=== PATIENT | female | born 1975 | race Caucasian/White ===

== ENCOUNTER → 2016-12-11 | Outpatient (CLI) | payer OTHER ==
--- NOTE | 2016-12-11 18:54 | Diagnostic Imaging Report ---
Bilateral diagnostic mammogram. The current study was also evaluated with a Computer Aided Detection (CAD) system. INDICATION: Palpable lump in the medial aspect of the right breast. COMPARISON: Comparison exams include 08/29/2015 and other studies. FINDINGS: The breasts are composed of heterogeneously dense parenchyma which may decrease mammographic sensitivity. Bilateral benign-appearing calcifications are seen. The area of palpable lump is marked in the right breast medial aspect with no underlying abnormality seen. IMPRESSION: Stable dense breast parenchyma is seen with no focal lesion identified. Ultrasound evaluation pending. ACR BI-RADS Category 0: Incomplete. (Needs additional imaging evaluation). Result letter will be mailed to the patient. Note: At least 10% of breast cancer is not imaged by mammography. Dictated by: Dictated on workstation # [id number]
--- NOTE | 2016-12-11 18:58 | Diagnostic Imaging Report ---
Right breast ultrasound. INDICATION: Palpable lump in the medial aspect of the right breast. FINDINGS: The area of palpable lump is scanned with no underlying abnormality seen. IMPRESSION: Negative study. Clinical follow-up of the palpable area recommended. ACR BI-RADS Category 1: Negative. Dictated by: Dictated on workstation # [id number]
== END ==
LOC: RAD 09:20
PROVIDERS: ATTEND Family Medicine
DX: Z12.31 Encounter for screening mammogram for malignant neoplasm of breast (principal); N63 Unspecified lump in breast
CPT/HCPCS: 77066

== ENCOUNTER → 2017-12-24 | Outpatient (CLI) | payer BC, OTHER ==
--- NOTE | 2017-12-24 17:53 | Diagnostic Imaging Report ---
INDICATION: Routine screening. Comparison is made with prior exams from 12/11/2016 and 08/29/2015. 2-D and 3-D bilateral screening mammography was performed. The current study was also evaluated with a Computer Aided Detection (CAD) system. FINDINGS: Scattered fibronodular densities are identified bilaterally. The parenchymal pattern is stable. There are benign nodular densities in both breasts which appear stable and most consistent with intraparenchymal lymph nodes. No new mass or malignant-appearing microcalcifications are seen. The axillae are unremarkable. IMPRESSION: No mammographic features suspicious for malignancy are identified. ACR BI-RADS Category 2: Benign findings. Result letter will be mailed to the patient. Note: At least 10% of breast cancer is not imaged by mammography. Dictated by: Dictated on workstation # [id number]
== END ==
LOC: RAD 09:21
PROVIDERS: ATTEND Family Medicine
DX: Z12.31 Encounter for screening mammogram for malignant neoplasm of breast (principal)
CPT/HCPCS: 77067

== ENCOUNTER → 2018-12-29 | Outpatient (CLI) | payer BC ==
--- NOTE | 2018-12-29 12:25 | Diagnostic Imaging Report ---
Indication: Routine screening. Comparison is made with prior mammogram from 12/24/2017 and 12/11/2016. 2-D and 3-D bilateral screening mammography was performed with CAD. Scattered fibroglandular densities are identified bilaterally. A benign nodular densities in both breasts appear stable and most consistent with intramammary lymph nodes. No spiculated mass or malignant appearing microcalcifications are seen. Axillae are unremarkable. Impression: BI-RADS category 2 No mammographic features suspicious for malignancy are identified. ACR BI-RADS Category 2: Benign findings. Result letter will be mailed to the patient. Note: At least 10% of breast cancer is not imaged by mammography. Dictated by: Dictated on workstation # [id number]
== END ==
LOC: RAD 09:28
PROVIDERS: ATTEND Family Medicine
DX: Z12.31 Encounter for screening mammogram for malignant neoplasm of breast (principal)
CPT/HCPCS: 77067

== ENCOUNTER → 2020-01-02 | Outpatient (CLI) | payer BC ==
--- NOTE | 2020-01-02 11:52 | Diagnostic Imaging Report ---
INDICATION: Routine screening. COMPARISON: 12/29/2018 and 12/24/2017. TECHNIQUE: 2D and 3D bilateral screening mammography was performed with CAD. FINDINGS: Both breasts remain heterogeneously dense, limiting the sensitivity of mammography. The intraparenchymal lymph nodes in the outer right breast appear stable. The circumscribed nodules in the lower outer left breast are also stable. No new mass or malignant appearing microcalcifications are seen. The axillae are unremarkable. IMPRESSION: No mammographic features suspicious for malignancy are identified. ACR BI-RADS Category 2: Benign findings. Result letter will be mailed to the patient. Note: At least 10% of breast cancer is not imaged by mammography. Dictated by: Dictated on workstation # [id number]
== END ==
LOC: RAD 10:57
PROVIDERS: ATTEND Family Medicine
DX: Z12.31 Encounter for screening mammogram for malignant neoplasm of breast (principal)
CPT/HCPCS: 77063; 77067

== ENCOUNTER → 2020-04-05 | Outpatient (CLI) | payer BC ==
--- NOTE | 2020-04-05 17:15 | Diagnostic Imaging Report ---
INDICATION: Left breast lump. Sonographic interrogation of the area of lump at the 7 to 8:00 location was performed. No sonographic abnormality is detected. No solid or cystic mass is detected. IMPRESSION: BI-RADS Category 1. No sonographic abnormality is identified. Close clinical and self breast exams are recommended to confirm stability of the palpable abnormality. If this persists, diagnostic mammography could be performed. ACR BI-RADS Category 1: Negative. Result letter will be mailed to the patient. Note: At least 10% of breast cancer is not imaged by mammography. Dictated by: Dictated on workstation # [id number]
== END ==
LOC: RAD 13:29
PROVIDERS: ATTEND Family Medicine
DX: N63.24 Unspecified lump in the left breast, lower inner quadrant (principal)
CPT/HCPCS: 76642

== ENCOUNTER → 2021-01-21 | Outpatient (CLI) | payer BC ==
--- NOTE | 2021-01-21 15:00 | Diagnostic Imaging Report ---
INDICATION: Routine screening. COMPARISON: 01/02/2020 and 12/29/2018. TECHNIQUE: 2D and 3D bilateral screening mammography was performed with CAD. FINDINGS: Both breasts are heterogeneously dense, limiting the sensitivity of mammography. Benign nodules in the outer right breast are stable. Benign-appearing nodules in the slightly outer left breast are also stable. No new mass or malignant-appearing microcalcifications are seen. The axillae are unremarkable. IMPRESSION: No mammographic features suspicious for malignancy are identified. ACR BI-RADS Category 2: Benign findings. Result letter will be mailed to the patient. Note: At least 10% of breast cancer is not imaged by mammography. Dictated by: Dictated on workstation # [id number]
== END ==
LOC: RAD 10:12
PROVIDERS: ATTEND Family Medicine
DX: Z12.31 Encounter for screening mammogram for malignant neoplasm of breast (principal)
CPT/HCPCS: 77063; 77067

== ENCOUNTER → 2022-01-22 | Outpatient (CLI) | payer BC ==
--- NOTE | 2022-01-22 18:12 | Diagnostic Imaging Report ---
EXAMINATION: 3D bilateral screening mammogram with CAD. COMPARISON: 01/21/2021, 01/02/2020 and 12/29/2018. The current study was also evaluated with a Computed Aided Detection (CAD) system. FINDINGS: At this time there are no current complaints. The fibroglandular tissue in both breasts is heterogeneously dense. This does limit the sensitivity of this exam. When compared to the previous study there does not appear to have been any significant change. There is no primary or secondary sign of malignancy noted. IMPRESSION: There is no evidence for malignancy. ACR BI-RADS Category 1: Negative. Result letter will be mailed to the patient. Note: At least 10% of breast cancer is not imaged by mammography. Dictated by: Dictated on workstation # [id number]
== END ==
LOC: RAD 09:45
PROVIDERS: ATTEND Family Medicine
DX: Z12.31 Encounter for screening mammogram for malignant neoplasm of breast (principal)
CPT/HCPCS: 77063; 77067

== ENCOUNTER → 2023-01-29 | Outpatient (CLI) | payer BC ==
--- NOTE | 2023-01-29 13:18 | Diagnostic Imaging Report ---
INDICATION: Routine screening. Comparison is made with prior mammogram from 01/22/2022 and 01/21/2021. 2-D and 3-D bilateral screening mammography was performed with CAD. Scattered fibroglandular densities are identified bilaterally. Benign-appearing nodules in the upper and outer aspect of the right breast appear stable. Left breast is stable. No spiculated mass or malignant appearing microcalcifications are seen. Axillae are unremarkable. IMPRESSION: No mammographic features suspicious for malignancy are identified. ACR BI-RADS Category 2: Benign findings. Result letter will be mailed to the patient. Note: At least 10% of breast cancer is not imaged by mammography. BI-RADS Category 2 Dictated by: Dictated on workstation # [id number]
== END ==
LOC: RAD 10:13
PROVIDERS: ATTEND Nurse Practitioner Family
DX: Z12.31 Encounter for screening mammogram for malignant neoplasm of breast (principal)
CPT/HCPCS: 77063; 77067

== ENCOUNTER → 2023-03-04 | Outpatient (CLI) | payer BC ==
[~2023-03-04] MED LIST: CATHETER FLUSH 10 ML SYR IVP PRN
--- NOTE | 2023-03-04 09:57 | Diagnostic Imaging Report ---
EXAM: RIGHT UPPER QUADRANT ULTRASOUND DATE: March 04, 2023. COMPARISON: None. INDICATION: 47-year-old female, right upper quadrant abdominal pain. PROCEDURE: Two-dimensional grayscale and color doppler ultrasound examination of the right upper quadrant is performed. FINDINGS: Liver: The liver is of normal size and echotexture without solid or cystic masses. The main portal vein is patent with normal directional flow and velocity. Bile ducts and gallbladder: There is no pericholecystic fluid, gallbladder wall thickening or gallstones. The gallbladder wall measures 0.2 cm. There is no intrahepatic or extrahepatic biliary ductal dilation. The common bile duct measures 0.4 cm. Right kidney: Unremarkable right kidney. No hydronephrosis. The right kidney measures 11.2 cm x 4.0 cm x 5.0 cm. Pancreas: Normal visualized pancreas. IMPRESSION: 1. Unremarkable right upper quadrant abdominal ultrasound. Dictated by: Dictated on workstation # [id number]
--- NOTE | 2023-03-04 13:00 | Diagnostic Imaging Report ---
INDICATION: Right upper quadrant pain COMPARISON: None available TECHNIQUE: Anterior scintigraphic imaging of the abdomen was performed after the intravenous administration of 4.84 mCi Tc-99m Choletec. FINDINGS: The upper abdomen was imaged for 45 minutes with the gamma camera. There is prompt homogeneous uptake of radiopharmaceutical by the liver. There is activity in the common duct and gallbladder by 20 minutes. Small bowel activity is seen by 25 minutes. After 45 minutes, the patient received 8 oz of ensure by mouth. After 40 minutes, the gallbladder ejection fraction was calculated to be 35% which is low normal. IMPRESSION: 1. Patent common and cystic bile ducts. 2. No gallbladder dysfunction. Dictated by: Dictated on workstation # [id number]
== END ==
LOC: CARD 08:06
PROVIDERS: ATTEND Surgery
DX: R10.11 Right upper quadrant pain (principal)
CPT/HCPCS: 76705; 78227

== ENCOUNTER 2023-04-22 09:35 | Outpatient (CLI) | payer BC ==
[~2023-04-22] VITALS: Ht 162.6 cm; Wt 63.2 kg
[2023-04-22] MEDS ORDERED: NFNEB10T PO (10:48)
[2023-04-22] MEDS ORDERED: FISH1CAP15 PO (10:48)
[2023-04-22] MEDS ORDERED: CALC600T91 PO (10:48)
[2023-04-22] MEDS ORDERED: NF-CRES10T PO (10:48)
[2023-04-22] MEDS ORDERED: LISD40CA3 PO (10:48)
[2023-04-22] MEDS ORDERED: VITA-259 PO (10:48)
[2023-04-22] MEDS ORDERED: LORA10TA76 PO (10:48)
[2023-04-22] MEDS ORDERED: LISI10TA25 PO (10:48)
[2023-04-22] MEDS ORDERED: CALC-250 PO (10:48)
[2023-04-22] MEDS ORDERED: OMEP20CA18 PO (10:48)
[2023-04-23] MEDS ORDERED: HYDR-3817 PO (09:27)
== END 2023-04-22 11:08 | disposition home or self-care (01) ==
LOC: PREOP 09:35
PROVIDERS: ATTEND Surgery
DX: Z01.818 Encounter for other preprocedural examination (principal)

== ENCOUNTER 2023-04-23 08:48 | Day surgery (SDC) | payer BC ==
[2023-04-23] VITALS (11 sets, daily range): BP systolic 86–129; BP diastolic 45–93
[~2023-04-23 08:48] MED LIST changes: +CALC-250 PO; +CALC600T91 PO; -CATHETER FLUSH 10 ML SYR IVP PRN; +FISH1CAP15 PO; +LISD40CA3 PO; +LISI10TA25 PO; +LORA10TA76 PO; +NF-CRES10T PO; +NFNEB10T PO; +OMEP20CA18 PO; +VITA-259 PO
--- NOTE | 2023-04-23 09:23 | Progress Note-Pre Operative ---
Pre-Operative Progress Note Date H&P Reviewed: Apr 23, 2023 Time H&P Reviewed: 09:20 History & Physical: H&P Reviewed, Patient Examed, No changes noted Pre-Operative Diagnosis: Screening colonoscopy, biliary dyskinesia, left eye lesion, right neck cyst MELISA JOLLEY APRN Apr 23, 2023 09:23
[2023-04-23] MEDS ORDERED: LIDOCAINE 2% w/EPI 1:100,000 20 ML VIAL ONE (09:27)
[2023-04-23] MEDS ORDERED: HYDR-3817 PO (09:27)
--- NOTE | 2023-04-23 09:28 | Discharge Inst-Surgical ---
D/C Lap Instructions-KIDO Reconcile Patient Problems Problems Reviewed?: Yes New, Converted, or Re-Newed RX: RX on Chart Follow Up Appt in 2 weeks Activity as tolerated No driving for 24 hours No driving while on pain medications Incentive Spirometry use every 2 hours while awake Regular Diet Symptoms to Report: Fever over 101 degree F, Nausea/Vomiting Infection Signs and Symptoms to report: Increased redness, Foul odor of wound, Increased drainage Bathing instructions: May shower Operative Area Clean/Dry; Keep incision clean/dry If any problems/questions: Contact your physician or go to Emergency Room MELISA JOLLEY APRN Apr 23, 2023 09:28
[2023-04-23] MEDS ORDERED: ONDANSETRON INJECTION 4 MG/2 ML (SDV) IVP PRN ×2 (09:30→11:45)
[2023-04-23] MEDS ORDERED: HYDROcodone/ACETAMINOPHEN 5 MG/325 MG TABLET PO ONE (09:30)
[2023-04-23] MEDS ORDERED: morphine INJ 10 MG/ML 1ML (SYR OR VIAL) IVP PRN (09:30)
[2023-04-23] MEDS ORDERED: ACETAMINOPHEN 325 MG TABLET PO PRN (09:30)
[2023-04-23] MEDS ORDERED: MIDAZOLAM INJ 2 MG/2 ML VIAL ONE (09:37)
[2023-04-23] MEDS ORDERED: fentaNYL INJECTION 100 MCG/2 ML VIAL ONE (09:37)
[2023-04-23] MEDS ORDERED: ceFAZolin INJECTION 1,000 MG in NS (IVPB) 50 ML 50 ML IV ONE (09:45)
[2023-04-23] MEDS: LACTATED RINGERS 1,000 ML 1,000 ML IV PRN ×2 (09:49→10:30)
[2023-04-23] MEDS ORDERED: LIDOCAINE 2% w/EPI 1:100,000 20 ML VIAL INJ ONE (10:24)
[2023-04-23] MEDS ORDERED: SEVOFLURANE (ULTANE) 15 ML INHAL SOLN ONE (11:09)
[2023-04-23] MEDS ORDERED: GLYCOPYRROLATE INJ 0.2 MG/ML 2 ML VIAL ONE (11:10)
[2023-04-23] MEDS ORDERED: LIDOCAINE PF 2% 5 ML VIAL ONE (11:10)
[2023-04-23] MEDS ORDERED: ROCURONIUM 50 MG/5 ML VIAL IV ONE (11:10)
[2023-04-23] MEDS ORDERED: ONDANSETRON INJECTION 4 MG/2 ML (SDV) ONE (11:10)
[2023-04-23] MEDS ORDERED: proPOfol INJECTION 200 MG/20 ML VIAL IV ONE (11:10)
[2023-04-23] MEDS ORDERED: dexAMETHasone INJ 10 MG/ML 1 ML VIAL ONE (11:10)
[2023-04-23] MEDS ORDERED: NEOSTIGMINE 1 MG/1ML 10 ML VIAL ONE (11:10)
--- NOTE | 2023-04-23 11:16 | Progress Note-Post Operative ---
Post-Operative Progess Note Surgeon (s)/Unix Systems Administrator (s) Surgeon Dr. Fady Hernandez M.D. Unix Systems Administrator: Campbell Jolley APRN Pre-Operative Diagnosis Screening colonoscopy, biliary dyskinesia, left eye lesion, right neck cyst Post-Operative Diagnosis Biliary dyskinesia, mild external and internal hemorrhoids, left eye medial canthus lesion (5 mm), right base of neck lesion (5 mm) Procedure & Operative Findings Date of Procedure 04/23/23 Procedure Performed/Findings Laparoscopic cholecystectomy, excision of left eye medial canthus and right base of neck lesion, colonoscopy Anesthesia Type GET Estimated Blood Loss Estimated blood loss (mL): Minimal Specimens/Packing Specimens Removed 1) Gallbladder 2) Left eye medial canthus 3) Right base of the neck lesion CAPMBELL JOLLEY PCI SECURITY CONSULTANT Apr 23, 2023 11:16
[2023-04-23] MEDS ORDERED: KETOROLAC INJ 30 MG/ML VIAL ONE (11:25)
--- NOTE | 2023-04-23 11:32 | Anesthesia-General Post-Op ---
General Patient Condition Mental Status/LOC: Same as Preop Cardiovascular: Satisfactory Nausea/Vomiting: Absent Respiratory: Satisfactory Pain: Controlled Complications: Absent Post Op Complications Complications None Follow Up Care/Instructions Patient Instructions None needed. Anesthesia/Patient Condition Patient Condition Patient is doing well, no complaints, stable vital signs, no apparent adverse anesthesia problems. No complications reported per nursing. ALEAH BAILEY CRNA Apr 23, 2023 11:32
[2023-04-23] MEDS ORDERED: KETOROLAC INJ 30 MG/ML VIAL IVP ONE (11:45)
[2023-04-23] MEDS ORDERED: morphine INJ 10 MG/ML 1ML (SYR OR VIAL) IVP ONE (11:45)
[2023-04-23] MEDS ORDERED: HYDROcodone/ACETAMINOPHEN 5 MG/325 MG TABLET ONE (13:01)
--- NOTE | 2023-04-23 19:54 | OPERATIVE REPORT ---
DATE OF SERVICE: 04/23/2023 ATTENDING PRIMARY CARE PHYSICIAN: Miya Mcmanus DO PREOPERATIVE DIAGNOSES: Symptomatic biliary dyskinesia, screening colonoscopy, symptomatic lesion along the left eye medial canthus, and the base of the right side of the neck. POSTOPERATIVE DIAGNOSES: Symptomatic biliary dyskinesia, screening colonoscopy, symptomatic lesion along the left eye medial canthus, and the base of the right side of the neck with mild stage II external and internal hemorrhoids. PROCEDURE: Laparoscopic cholecystectomy, colonoscopy, excision of left eye medial canthus skin lesion, 5 mm in size, and excision of skin lesion of the base of the right neck, 5 mm in size. SURGEON: Vida Hernandez M.D. WHARF TALLY CLERK: Campbell Taylor APRN ANESTHESIA: General endotracheal. ESTIMATED BLOOD LOSS: Minimal. FINDINGS: Symptomatic biliary dyskinesia, screening colonoscopy, symptomatic lesion along the left eye medial canthus, and the base of the right side of the neck with mild stage II external and internal hemorrhoids. DISPOSITION: The patient tolerated the procedure well. INDICATIONS: The patient is a 47-year-old female with approximately 5-month history of upper abdominal discomfort and encompassing right upper abdominal quadrant crampy pain, abdominal bloating, as well as nausea, usually after eating meals. She states that this was initially mild, however, has become more frequent and worsened in severity over time. She underwent an ultrasound, which did not show any gallstones, however, a HIDA scan was performed, which showed a low ejection fraction consistent with a symptomatic biliary dyskinesia. She also is in need of a screening colonoscopy. She has not had a colonoscopy up to this point in her life. She does not report any major issues with diarrhea, nor constipation as well as no red blood per rectum, nor any dark tarry stools. She also does not report any family history of colon cancer. She also has two symptomatic lesions, one along the medial canthus of the left eye and at the base of the right neck. Both lesions are small and raised and approximately 5 mm in size. DESCRIPTION OF PROCEDURE: The patient was brought to the operating room, laid supine on the table. After adequate IV pain and sedative medications and general endotracheal intubation, the abdomen was prepped and draped in standard surgical fashion. Lidocaine 2% with epinephrine was then used to anesthetize the overlying skin in the left upper abdominal quadrant and a transverse skin incision made using a #15 blade. An 0 silk suture was applied to the medial aspect of the incision for retraction and a Veress needle inserted with low opening pressure of 0 mmHg. The abdomen was then insufflated to 15 mmHg pressure. The Veress needle removed and a 5-mm trocar placed followed by a 5-mm 45-degree angle laparoscope. A four-quadrant abdominal exploration was performed. There was a distended gallbladder as well as adhesions of the gallbladder to the caudate lobe of the liver. Under direct visualization, we then proceeded to place a supraumbilical 10-mm port after the skin and peritoneal lining were anesthetized using 2% lidocaine with epinephrine and a transverse skin incision made using a #15 blade. In a similar manner, a right upper abdominal quadrant 5-mm port was placed. The patient was then placed in the reverse Trendelenburg position as well as plane right side up, left side down. The fundus of the gallbladder was then retracted anteriorly and superiorly. The hepatoduodenal ligament was then dissected using blunt dissection as well as electrocautery on the hook instrument as well as a [place] dissector. The adhesions to the caudate lobe of the liver were then taken down using electrocautery on the hook instrument with visualization of good hemostasis. The entire critical view of safety was identified including the cystic duct and artery as the only 2 structures going into the gallbladder as well as the cystic plate behind the proximal gallbladder. A timeout was then taken and the cystic duct and artery were then clipped proximally and distally and cut with EndoShears. The gallbladder was then dissected off of the liver bed using cautery on hook instrument with visualization of good hemostasis as well as no leaking ducts of Luschka. The gallbladder was removed through the 10-mm port site using an EndoCatch bag. The fascia and peritoneum to the 10-mm port were then closed under direct visualization using a Jean[place] device and 0 Vicryl suture. The abdomen was desufflated and the remaining ports were removed and all skin incisions were closed using 4-0 Monocryl running subcuticular sutures. We then proceeded with excision of the left eye medial canthus skin lesion. This lesion was anesthetized using 2% lidocaine with epinephrine. The lesion was then excised using a #15 blade, the size of the lesion was approximately 5 mm. Good hemostasis was achieved with direct pressure and the skin edges were approximated using 5-0 Prolene interrupted suture. In a similar manner, the lesion of the base of the right neck was anesthetized and excised using a #15 blade. The skin edges were then reapproximated using 5-0 Prolene interrupted suture. The patient was then placed in frogleg position and a digital rectal examination was performed which revealed mild chronic stage II external and internal hemorrhoids, not actively edematous nor inflamed and no bleeding. Normal sphincter tone was felt and there were no palpable masses. The endoscope was then intubated into the anus, rectum gently insufflated. The endoscope was then advanced through the valves of [place] of the rectum with no polyps or any neoplasms identified. We then proceeded through the sigmoid colon where a solitary small diverticula identified. We then proceeded through the remainder of the descending, transverse and ascending colon to the cecum, which were normal. There were no polyps or any neoplasms identified. The endoscope was then slowly withdrawn while taking a second look and suctioning of residual air with no additional findings. The patient tolerated the procedure well. We will have him start IV and oral pain medication as well as a clear liquid diet. When she is tolerating clears with good pain control with oral pain medication, and is ambulating well, we will discharge her home. We will also recommend eventual high-fiber diet with a fiber supplement, which are equal or exceed 25 grams daily as well as significant amounts of water to promote soft stools on a daily basis. She does not need another colonoscopy for another 10 years, if she is asymptomatic. We will also have her follow up in the office to discuss the pathology results of the skin lesions as well as to remove the sutures. Job ID: [id number] DocumentID: [id number] Dictated Date: 04/23/2023 12:47:18 Shredder Operator Date: 04/23/2023 19:52:00 Dictated By: VIDA HERNANDEZ MD
== END 2023-04-23 13:40 | disposition home or self-care (01) ==
LOC: SDC 08:48
PROVIDERS: ATTEND Surgery
DX: Z12.11 Encounter for screening for malignant neoplasm of colon (principal); K81.1 Chronic cholecystitis; K82.8 Other specified diseases of gallbladder; K64.1 Second degree hemorrhoids; K64.8 Other hemorrhoids; L98.8 Other specified disorders of the skin and subcutaneous tissue; L91.8 Other hypertrophic disorders of the skin; K57.30 Diverticulosis of large intestine without perforation or abscess without bleeding; K21.9 Gastro-esophageal reflux disease without esophagitis; Z79.899 Other long term (current) drug therapy
CPT/HCPCS: 87081; 88304